=== PATIENT | male | born 1985 | race Caucasian/White ===

== ENCOUNTER 2020-05-05 22:56 | Emergency (ER) | payer MEDICAID ==
[~2020-05-05] VITALS: Ht 175.3 cm; Wt 63.6 kg
[2020-05-05] MEDS ORDERED: CEPH250T PO (23:28)
[2020-05-05 23:36] VITALS: BP 128/70
== END 2020-05-05 23:37 | disposition home or self-care (01) ==
LOC: ER 22:56
DX: L08.89 Other specified local infections of the skin and subcutaneous tissue (principal); Z79.899 Other long term (current) drug therapy
CPT/HCPCS: 99283

== ENCOUNTER 2021-03-21 20:55 | Emergency (ER) | payer MEDICAID ==
[~2021-03-21] VITALS: Ht 172.7 cm; Wt 81.8 kg
[2021-03-21 21:03] VITALS: BP 132/68
[2021-03-21] MEDS ORDERED: PERM60CR19 TP (23:58)
== END 2021-03-22 00:04 | disposition home or self-care (01) ==
LOC: ER 20:57
DX: B86 Scabies (principal); Z79.899 Other long term (current) drug therapy
CPT/HCPCS: 99283

== ENCOUNTER 2021-05-12 13:18 | Emergency (ER) | payer MEDICAID ==
[~2021-05-12] VITALS: Ht 175.3 cm; Wt 61.4 kg
[2021-05-12 13:21] VITALS: BP 131/82
[2021-05-12] MEDS ORDERED: PERM60CR19 TOP (13:30)
== END 2021-05-12 13:51 | disposition home or self-care (01) ==
LOC: ER 13:18
DX: R21 Rash and other nonspecific skin eruption (principal); Z76.0 Encounter for issue of repeat prescription
CPT/HCPCS: 99281

== ENCOUNTER 2021-10-21 13:38 | Emergency (ER) | payer MEDICAID ==
[~2021-10-21] VITALS: Ht 175.3 cm; Wt 61.4 kg
[2021-10-21 14:05] VITALS: BP 138/87
[2021-10-21] MEDS ORDERED: Ivermectin 3mg tablet PO STA (14:13)
[2021-10-21] MEDS ORDERED: sulfamethoxazole/trimethoprim DS (800/160mg) tablet PO ONE (14:25)
[2021-10-21] MEDS ORDERED: IVER3TAB2 PO (14:28)
[2021-10-21] MEDS ORDERED: SULF1TAB49 PO (14:28)
--- NOTE | 2021-10-21 14:40 | NUR ---
Patient was seen and assessed by provider.
== END 2021-10-21 14:40 | disposition home or self-care (01) ==
LOC: ER 13:38
DX: K13.0 Diseases of lips (principal)
CPT/HCPCS: 99283